=== PATIENT | female | born 1985 | race Caucasian/White ===

== ENCOUNTER 2017-11-15 10:37 | Inpatient (IN) | payer BC ==
[2017-11-15] MEDS ORDERED: Lactated Ringer's 1,000 ML IV SCH (11:30)
[2017-11-15 12:13] LABS: BASO % 0.4 % (0.0-2.0); EOS % 0.4 % (0.0-4.0); LYMPH # 1.9 K/uL (1.0-4.3); MEAN CELL VOLUME 83.8 fL (81.0-99.0); MEAN CORPUSCULAR HGB CONC 34.6 g/dL (33.0-37.0); MEAN PLATELET VOLUME 9.2 fL (7.2-11.7); MONO # 0.7 K/uL (0.0-0.8); MONO % 6.2 % (0.0-10.0); NEUT # 8.3 K/uL (1.8-7.0); NRBC % 0.1 % (0.0-2.0); RBC 4.15 Mil/uL (3.80-5.20); RED CELL DISTRIBUTION WIDTH 20.1 % (11.5-14.5)
[2017-11-15 12:22] LABS: INR 0.9; PROTHROMBIN TIME 10.2 SECONDS (9.7-12.2)
[2017-11-15 12:23] LABS: ALBUMIN 3.6 g/dL (3.5-5.0); ALT/SGPT 21 U/L (9-52); AST/SGOT 24 U/L (14-36); BLOOD UREA NITROGEN 9 mg/dL (7-17); CALCIUM 9.1 mg/dl (8.6-10.4); GFR AFRICAN-AMERICAN > 60; GFR NON-AFRICAN AMERICAN > 60; URIC ACID 5.4 mg/dL (2.2-7.5)
[2017-11-15 12:27] LABS: SQUAMOUS EPITHIAL 6 /hpf (0-5); URINE BACTERIA OCC (<OCC); URINE BILIRUBIN NEGATIVE (NEGATIVE); URINE BLOOD 2+ (NEGATIVE); URINE CLARITY Clear (Clear); URINE COLOR Yellow (YELLOW); URINE GLUCOSE (UA) NORMAL (Normal); URINE LEUKOCYTE ESTERASE NEG Leu/uL (Negative); URINE NITRATE NEGATIVE (NEGATIVE); URINE PROTEIN NEGATIVE (NEGATIVE); URINE UROBILINOGEN NORMAL mg/dL (0.2-1.0)
[2017-11-15] MEDS ORDERED: Oxytocin 20 units in LR 2,000 ML IV ONE (12:28)
[2017-11-15] MEDS ORDERED: Oxytocin 10 Units/ml Inj ONE (12:29)
[2017-11-15] MEDS ORDERED: Sodium Citrate/Citric Acid 15 ml Sol PO ONE (12:30)
--- NOTE | 2017-11-15 13:17 | OBHP ---
Datetime: 11/15/2017 11:10 IP Adm Impression: Term, intrauterine IP Admit Plan: Admit to unit; Initiate Section protocol Admit Comment, IP Provider: Patient is a 32 year old at 38w4d RIC 11/25/17 by LMP 02/19/17 pre sents to L+D for abdominal pain since last night. Offers no other complaints at this time. Endorses + FM, denies VB, LOF. pt also wiht incresaign bloodpuressre x 1 day. pt reports occationsl headahes, de nis blrry vion, ruq/peigaits pain. pt blood pressu reon arivval 140/100, and with bp at hoem 138/100. Issues: induced Hypertension Previous C/S x 1 OB Hx: 1. 2012 PLTCD at 34 weeks for oligohydramnios, Male infant, 1.3kg, no complications 2. 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: LMP - 02/19/17 [facility] - 16// days Denies fibroids, ovarian cysts, STIs Denies hx of abnormal pap smears Allergies: NKDA Medications: Folic acid, iron Medical hx: HTN Surgical Hx: C/S x 1, D+C Social Hx: Denies alcohol, tobacco, drug use; lives with Family Hx: Denies PE: See above A/P: 32 year old at 38w4d presents with abdominal pain, previous C/S x 1 in labor, mild pr eeclmapsia -Stable, afebrile -CEFM and TOCO -Admission labs: CBC, CMP, UA, TS, RPR -Patient with elevated BPs, PIH labs sent -Lactated ringers at 125cc/hr -Diet: NPO -Cefoxitin 2gm, Bictra, Pepcid preoperatively -Anesthesia notified -Plan discussed with Dr Kaveh Galindo DO PGY-1 agree with above admit bp q 15 m in, 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 automatic 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 to or Pelvic Type - PN: Adequate Extremities - PN: Normal Abdomen - PN: Normal Back - PN: Normal Breast - PN: Normal Lungs - PN: Normal Heart - PN: Normal Thyroid - PN: Not Done Neurologic - PN: Normal HEENT - PN: Normal General - PN: Normal Presentation-Admit: Breech FHR - Baseline A Provider: 145 Membranes, Provider: Intact Contraction Comments Provider: q5-6min Comments, ACOG Physical Exam: VS: 143/100 110 99.2 Gen: AAOx3 Abd: Soft, gravid, no RUQ/epigatsl tenderness DTR 2=B/l Ext: No clubbing, cyanosis, edema Gestation - Est Wks by US: 38.4 IP Hx Assessment: The History has been Reviewed and is Current EGA AdmitDate IP: 38.4 Vital Signs Provider: Reviewed IP Chief Complaint: Uterine contractions NICHD Variability Prov Fetus A: Moderate 6-25bpm NICHD Accel Fetus A IP Provider: [id number] FHR Category Provider Fetus A: Category I NICHD Decel Fetus A IP Provider: None Dilatation, Provider: 2 Effacement, Provider: 70 Station, Provider: -3 Genitourinary Exam: Normal DTRs - PN: Normal
[2017-11-15] MEDS ORDERED: Morphine 1 mg/ml preservative-free Inj(Duramorph) ONE (14:41)
--- NOTE | 2017-11-15 16:01 | PCM.SURG1 ---
Surgeon's Initial Post Op Note - Surgeon's Notes Surgeon: Jennifer Linn MD Furnace Attendant: Eddie Collins MD Type of Anesthesia: Spinal Pre-Operative Diagnosis: Previous cesearean section, contractingf labor, mild preclampisa Operative Findings: live femlase , cephalic presentation, apgars 9,9 weight of 6lbs 4 ounces. jayme anterior adhesion, unable to exteriorize uteurs, . Dr Eddie Collins was assembler surgical garment and present for entire case and essential in gaining entry, retraction, epxousre, holding blade, helping to dleiver , clsing all layers, obtaining hemostasis. Post-Operative Diagnosis: same as above Operation Performed: Repeat low transverse cesearen section Specimen/Specimens Removed: placenta Estimated Blood Loss: EBL {In ML}: 800 Blood Products Given: N/A Drains Used: No Drains Date of Surgery/Procedure: 11/15/17 Time of Surgery/Procedure: 15:00
--- NOTE | 2017-11-15 16:03 | OBDS ---
DELIVERY PERSONNEL Delivery Doctor: Tanvi Linn MD Scrub Nurse: Bárbara Rao/Espirito R Digital Marketing Project Manager: Sarah Ambrose RN Anesthesiologist: dr Perez MATERNAL INFORMATION Delivery Anesthesia: Spinal Provider Comments: live fmel ane infnt cephalic present jayme anteiroe adhesions, unable to exterioze uteurs weight of 6lb 4 ounecs, 9,9 ebl 800 ml no complications LABOR SUMMARY EDC: 11/25/2017 00:00 No. Babies in Womb: 1 LABOR INFORMATION Group B Beta Strep: Negative Antibiotics # of Doses: 1 Antibiotics Time of Last Dose: 1227 MEMBRANES Membranes Rupture Method: Artificial Rupture of Membranes: 11/15/2017 15:11 Length of Rupture (hrs): 0.00 Amniotic Fluid Color: Clear Amniotic Fluid Amount: Moderate Amniotic Fluid Odor: None STAGES OF LABOR Stage 3 hrs: 0 Stage 3 min: 1 CSECTION DELIVERY Secondary Indication: Repeat Elective CSection Urgency: Elective CSection Incidence: Repeat Labor: No Labor Elective: Elective CSection Incision: Lower Uterine Transverse BABY A INFORMATION Delivery Date/Time: 11/15/2017 15:11 Method of Delivery: Born in Route : No : N/A Forceps: N/A Vacuum Extraction: N/A Shoulder Dystocia : No SHOULDER DYSTOCIA BABY A Delivery Date/Time: 11/15/2017 15:11 PRESENTATION/POSITION BABY A Presentation: Cephalic Cephalic Presentation: Vertex Vertex Position: Right Occipital Anterior Breech Presentation: N/A PLACENTA INFORMATION BABY A Placenta Delivery Time : 11/15/2017 15:12 Placenta Method of Delivery: Manual Removal Placenta Status: Delivered SCORES BABY A Heart Rate 1 min: >100 bpm Resp Effort 1 min: Good Cry Reflex Irritability 1 min: Cough or Sneeze or Pulls Away Muscle Tone 1 min: Active Motion Color 1 min: Body [place], Extremities Blue Resuscitation Effort 1 min: Tactile Stimulation SCORE 1 MIN: 9 Heart Rate 5 min: >100 bpm Resp Effort 5 min: Good Cry Reflex Irritability 5 min: Cough or Sneeze or Pulls Away Muscle Tone 5 min: Active Motion Color 5 min: Body [place], Extremities Blue Resuscitation Effort 5 min: N/A SCORE 5 MIN: 9 INFORMATION BABY A Gestational Age at Delivery: 38.4 Gestational Status: Term Outcome : Liveborn Condition : Stable Infant Sex: Female IDENTIFICATION/MEDS BABY A ID Band Number: [id number] Sensor Number: [id number] WEIGHT/LENGTH BABY A Birthweight (gms): 2835 Weight (lb): 6 Weight (oz): 4 Length Inches: 19.00 Length cms: 48.3 CORD INFORMATION BABY A No. Cord Vessels: 3 Nuchal Cord : N/A Cord pH Baby Venous: 7.35 Cord Blood Taken: Yes Suction: Mouth; Nose ASSESSMENT BABY A Complications: None Physical Findings at Delivery: Within Normal Limits Infant Respirations: Appears Normal Emt Paramedic/ALS Called : No Infant Care By: Oswald Good rN, Dr Krause Transferred To: Remains with Mother
--- NOTE | 2017-11-16 01:46 | OP ---
PROCEDURE DATE: 11/15/2017. SURGEON: Jennifer Linn M.D. TANK RIVETER: Eddie Collins MD. TYPE OF ANESTHESIA: Spinal. PREOPERATIVE DIAGNOSIS: Previous section, sherwin in labor, . POSTOPERATIVE DIAGNOSIS: Previous section, sherwin in labor . OPERATIVE FINDINGS: Live female infant, cephalic presentation, Apgars 9 and 9, weight of 6 pounds 4 ounces, dense anterior adhesions, unable to exteriorize the uterus. Dr. Eddie Collins, the surgical endoscopist was present for the entire case, assisted essentially in gaining entry, retraction, exposure, holding the bladder blade, helping to deliver the , closing all layers, obtaining hemostasis. OPERATION PERFORMED: Repeat low-transverse section. SPECIMEN REMOVED: Placenta. ESTIMATED BLOOD LOSS: 800 mL. BLOOD PRODUCTS: None. COMPLICATIONS: None. DESCRIPTION OF PROCEDURE: The patient was taken to the operating room where she was given spinal anesthesia. Once she was found to be adequate, she was then positioned on the operating table in dorsal supine position. The patient was then prepped and draped in the usual sterile fashion. A time-out confirmed correct patient and correct procedure. A Pfannenstiel skin incision was made with a scalpel and carried down to the underlying fascia with the Bovie. The fascia was incised in midline. The incision was carried down laterally with the Henry scissors. The fascia was then bluntly from the rectus using the Denise clamps. The rectus muscle was then bluntly in the midline. The peritoneum was identified. The incision was extended laterally and superiorly until there was good visualization. There was anterior adhesions noted from the uterus and the anterior abdominal wall and bladder adhesions noted anteriorly. The vesicouterine peritoneum was incised. The bladder flap was created digitally. The lower end of the Virgen was reinserted. The lower uterine segment was incised in a transverse fashion. The lower uterine segment was extended laterally and bluntly. Incision was carried into the uterine cavity. Infant's head was delivered atraumatically followed by delivery of the shoulders, followed by delivery of body. Both oral and nasal passages of the baby were bulb suctioned. The nuchal cord was clamped and cut. Baby was handed off to the awaiting data warehousing specialist. Following this, cord blood and cord gases were collected and sent x2. There was a true knot noted within the cord. The placenta was then delivered manually. The uterus was unable to be exteriorized, but was cleared of all clots and debris. The uterine incision was repaired with 0 Vicryl in a running continuous locked fashion. The second layer of the same suture was used to close the uterus in a running imbricating manner. There was normal tubes and ovaries bilaterally. Following this, the peritoneum and rectus were then reapproximated with 2-0 chromic. The fascia was reapproximated and closed with 0 Vicryl in a running continuous fashion. The subcutaneous space was closed with 2-0 plain in interrupted manner and the skin was reapproximated and closed with 0 Monocryl in a running subcuticular fashion. At the end of the procedure, all needles, sponge, and instrument counts were noted to be correct x2. The patient tolerated the procedure well and was transferred to the recovery room in stable condition. Jennifer Linn MD
[2017-11-16] MEDS: Oxycodone/Acetaminophen 5/325 mg Tab PO PRN ×3 (06:53→18:13)
--- NOTE | 2017-11-16 07:02 | OBPPN ---
Datetime: 11/16/2017 06:59 PP Pain Prov: Within normal limits PP Nausea Prov: Denies PP Flatus Prov: Yes PP BM Prov: No PP Breasts Prov: Normal PP Heart Prov: Normal PP Lungs Prov: Normal PP Abdomen/Uterus Prov: Normal PP Lochia Prov: Normal PP Vulva/Perineum Prov: Normal PP CVA Tenderness Prov: Normal PP Extremities Prov: Normal PP C/S Incision Prov: Normal PP Progress Prov: Normal PP Impression Prov: Normal progression PP Plan Prov: Continue present management PP Progress Note Prov: pt seen and examined anf report pain is conroled with pain meidcaion. pt ambu aitng to bathroom, dnies any cp, sob, lightheadness, dizzyness, heavy vagianl bleeding. pt is breast feeding, dies any fever chills, nause, vmiting VSS PE GEN NAD AA Ox 3 ERSP: CTAB?l CVS: RRR, +S1/S2 ABD: soft, NT/ND no guaridng no rebound tendnerss, no rigidyt FUND*U: Firm, at lelve o fumcilsu INCISN C/?DI healign well VE: moderage lochia, non foulselling EX:T negative homans sign, no calf tnedners b/l A?P s/p RLTC POD #1 doign well -pain manamgnet -f/u am labs -enocurage breast feedign/ambuation -addomina binder, incentive psirometer IP PP Procedures: None Vital Signs Provider PP: Reviewed; Within Normal Limits
[2017-11-16 07:20] LABS: BASO % 0.2 % (0.0-2.0); EOS % 0.2 % (0.0-4.0); LYMPH # 2.5 K/uL (1.0-4.3); LYMPH % 13.1 % (20.0-40.0); MEAN CELL VOLUME 83.9 fL (81.0-99.0); MEAN CORPUSCULAR HEMOGLOBIN 28.7 pg (27.0-31.0); MEAN CORPUSCULAR HGB CONC 34.3 g/dL (33.0-37.0); MEAN PLATELET VOLUME 9.2 fL (7.2-11.7); MONO # 0.8 K/uL (0.0-0.8); MONO % 4.5 % (0.0-10.0); NEUT # 15.4 K/uL (1.8-7.0); RBC 3.82 Mil/uL (3.80-5.20); RED CELL DISTRIBUTION WIDTH 20.2 % (11.5-14.5)
[2017-11-16 07:39] LABS: WHITE BLOOD COUNT 18.8 K/uL (4.8-10.8)
[2017-11-16] MEDS ORDERED: Oxycodone/Acetaminophen 5/325 mg Tab PO PRN (08:04)
[2017-11-16 08:34] VITALS: O2SAT 97
[2017-11-16] MEDS ORDERED: Bisacodyl 5mg EC Tab PO ONE (09:45)
[2017-11-16] MEDS: Simethicone 80 mg Chewtab PO SCH ×4 (10:10→22:42)
[2017-11-17 07:28] LABS: BASO % 0.1 % (0.0-2.0); HEMOGLOBIN 10.5 g/dL (11.0-16.0); LYMPH # 2.2 K/uL (1.0-4.3); LYMPH % 11.2 % (20.0-40.0); MEAN CELL VOLUME 84.6 fL (81.0-99.0); MEAN CORPUSCULAR HEMOGLOBIN 28.5 pg (27.0-31.0); MEAN CORPUSCULAR HGB CONC 33.7 g/dL (33.0-37.0); MEAN PLATELET VOLUME 9.4 fL (7.2-11.7); MONO # 0.9 K/uL (0.0-0.8); MONO % 4.9 % (0.0-10.0); NEUT # 16.2 K/uL (1.8-7.0); NEUT % 83.8 % (50.0-75.0); RBC 3.69 Mil/uL (3.80-5.20); RED CELL DISTRIBUTION WIDTH 20.1 % (11.5-14.5); WHITE BLOOD COUNT 19.4 K/uL (4.8-10.8)
[2017-11-17 08:38] VITALS: BP 126/82; PULSE 108; RESP 18; TEMP 99
[2017-11-17] MEDS: Simethicone 80 mg Chewtab PO SCH ×2 (09:24→14:46)
[2017-11-17 13:54] LABS: BASO % 0.1 % (0.0-2.0); EOS % 0.1 % (0.0-4.0); HEMOGLOBIN 10.1 g/dL (11.0-16.0); LYMPH # 1.9 K/uL (1.0-4.3); LYMPH % 10.3 % (20.0-40.0); MEAN CELL VOLUME 84.9 fL (81.0-99.0); MEAN CORPUSCULAR HEMOGLOBIN 28.5 pg (27.0-31.0); MEAN CORPUSCULAR HGB CONC 33.6 g/dL (33.0-37.0); MEAN PLATELET VOLUME 9.1 fL (7.2-11.7); MONO # 1.1 K/uL (0.0-0.8); MONO % 5.8 % (0.0-10.0); NEUT # 15.3 K/uL (1.8-7.0); NEUT % 83.7 % (50.0-75.0); RBC 3.56 Mil/uL (3.80-5.20); RED CELL DISTRIBUTION WIDTH 20.2 % (11.5-14.5); WHITE BLOOD COUNT 18.3 K/uL (4.8-10.8)
--- NOTE | 2017-11-18 15:35 | OBPPN ---
Datetime: 11/17/2017 09:47 PP Pain Prov: Within normal limits PP Nausea Prov: Denies PP Flatus Prov: No PP BM Prov: No PP Heart Prov: Normal PP Lungs Prov: Normal PP Abdomen/Uterus Prov: Normal PP Lochia Prov: Normal PP Extremities Prov: Normal PP C/S Incision Prov: Normal PP Progress Prov: Normal PP Impression Prov: Normal progression PP Plan Prov: Continue present management; Discharge PP Progress Note Prov: Patient seen and examined at bedside. Per nursing no acute events overnight. Patient is doing well, pain is controlled. Lochia is mild. Ambulating and tolerating diet. Denies pas sing flatus or BM. Urinating without difficulty. Breast and bottle feeding. Denies headaches, dizzine ss, cp, palpitations, sob, urinary symptoms. VS: 126/82 108 99.0 Gen: AAOx3 Abd: Soft, appropriately tender, fundus firm below umbilicus, incision c/d/i with steristrips Ext: No clubbing, cyanosis, edema; no calf tenderness Labs: 11.0>12.0/34.7<231 18.8>11.0/32.0<206 19.4>10.5/31.2<215 A positive Rubella immune A/P: 32 year old at 38w4d s/p RLTCD POD#2 -Stable, afebrile -Pain control: percocet and motrin prn -Encourage ambulation and hydration -Encourage and ISS use -Continue routine care -Patient desires to go home, d/c pending repeat CBC results -Plan discussed with Dr Kaveh Galindo DO PGY-1 OB addendum: Repeat WBC 18.3, will discharge patient home. Pelvic rest x 8 weeks, patient to follo w up with Dr Linn in the office on saturday. agree with abvove pt pavel and evulate, astymatocm will rto 1 week for follo up preucitn ginve Vital Signs Provider PP: Reviewed
--- NOTE | 2017-11-18 15:37 | OBDCSUM ---
Datetime: 11/17/2017 14:06 Discharge Diagnosis, Provider: Term Delivered
== END 2017-11-17 15:15 | disposition home or self-care (01) | DRG 766 ==
LOC: C.EROB 10:37 → C.4D 11:26 → C.4M 19:30
PROVIDERS: ADMIT Obstetrics & Gynecology; ATTEND Obstetrics & Gynecology
PROC: 10D00Z1 Extraction of Products of Conception, Low, Open Approach (ICD-10-PCS; principal; 2017-11-15)
DX: O13.4 Gestational [pregnancy-induced] hypertension without significant proteinuria, complicating childbirth (principal); O34.211 Maternal care for low transverse scar from previous cesarean delivery; O75.82 Onset (spontaneous) of labor after 37 completed weeks of gestation but before 39 completed weeks gestation, with delivery by (planned) cesarean section; Z3A.38 38 weeks gestation of pregnancy; Z37.0 Single live birth